=== PATIENT | male | born 1970 | race Caucasian/White ===

== ENCOUNTER 2019-11-03 15:56 | Emergency (ER) | payer BC, OTHER ==
[2019-11-03 16:42] LABS: Absolute Neutrophil Ct (ANC) 4.11 (1.4-6.9); BASOPHIL % 0.1 % (0.0-0.4); Basophil (Absolute #) 0.01 (0-0.4); Eosinophil % 2.3 % (0.00-5.0); Eosinophil (Absolute #) 0.16 (0-0.5); Hematocrit 45.8 % (42-50); Hemoglobin 15.8 gm/dl (12.5-18.0); Lymphocyte (Absolute #) 2.13 (1.0-4.6); Lymphocytes % 30.3 % (24.0-44.0); Mean Cell Volume 100.4 fl (78-100); Mean Corpuscular Hemoglobin 34.6 pg (26-32); Mean Corpuscular Hgb Concent. 34.5 g/dl (32-36); Mean Platelet Volume 9.4 fl (7.5-11.0); Monocyte (Absolute #) 0.61 (0.0-1.3); Monocytes % 8.7 % (0.0-12.0); Neutrophil % 58.6 % (36.0-66.0); Platelet Count 180 K/mm3 (150-450); Red Blood Count 4.56 M/mm3 (4.1-5.6); Red Cell Distribution Width 12.8 % (11.5-14.0)
[2019-11-03 17:42] VITALS: PULSE 84; O2SAT 97
[2019-11-03] MEDS ORDERED: BABY ASPIRIN 81 MG CHEW PO ONE (18:11)
[2019-11-03] MEDS ORDERED: BABY ASPIRIN 81 MG CHEW ONE (18:31)
[2019-11-03 18:33] VITALS: BP 129/72
[2019-11-03 18:45] LABS: Amphetamine,Urine NEGATIVE (NEGATIVE); Appearance CLEAR (CLEAR); Bacteria NONE SEEN /HPF (NEGATIVE); Barbiturate,Urine NEGATIVE (NEGATIVE); Benzodiazepine,Urine NEGATIVE (NEGATIVE); Bilirubin NEGATIVE (NEGATIVE); Blood SMALL Ery/ul (0-5); Cocaine,Urine NEGATIVE (NEGATIVE); Glucose NEGATIVE (NEGATIVE); Ketones NEGATIVE (NEGATIVE); Leukocyte Esterase SMALL (NEGATIVE); Methadone,Urine NEGATIVE (NEGATIVE); Mucus SLIGHT /HPF (NEGATIVE); Nitrite NEGATIVE (NEGATIVE); Opiate,Urine NEGATIVE (NEGATIVE); PCP,Urine NEGATIVE (NEGATIVE); Protein,Urine Dip NEGATIVE (Negative); THC,Urine POSITIVE (NEGATIVE); Urobilinogen 2 mg/dL (0-1); WBC 0-2 /HPF (0-5)
[2019-11-03 18:56] LABS: ALBUMIN 4.7 g/dL (3.5-5.0); ALKALINE PHOSPHATASE 58 U/L (38-126); ANION GAP 14.8 MEQ/L (5-15); BLOOD UREA NITROGEN 11 mg/dL (9-20); CHLORIDE 106 mmol/L (98-107); Calcium 9.6 mg/dL (8.4-10.2); Carbon Dioxide 24 mmol/L (22-30); Creatinine 1 0.91 mg/dL (0.66-1.25); EST GLOMERULAR FILTRATION RATE > 60.0 ML/MIN; Glucose 104 mg/dL (74-106); Potassium 4.1 mmol/L (3.5-5.1); SGOT/AST 29 U/L (17-59); SGPT/ALT 24 U/L (0-50); SODIUM 141 mmol/L (137-145); Total Protein 8.1 g/dL (6.3-8.2)
--- NOTE | 2019-11-03 18:59 | ERPHSYRPT ---
- History of Present Illness Time Seen by Provider: 11/03/19 16:13 Source: patient Exam Limitations: no limitations Patient Subjective Stated Complaint: Pt states that when he woke up this morning his left arm was numb, pt reports drinking last night Triage Nursing Assessment: Pt brought himself to the ER, hypertensive, unable to use left hand, denies pain, no edema, no other parts of the body is effected, denies any other issues at this time Physician History: 49 years old male presented in the ER with chief complaint of left upper extremity weakness and numbness since he woke up around 9 AM. Patient reports was drinking last night and went to bed in his friend's place normally, woke up and was unable to move his left wrist. He denies any weakness in the lower extremities, difficulty speech or visual disturbance. Planes of numbness in the entire left upper extremity and some on the left face. Denies any chest pain palpitations or shortness of breath. No sick contact. Time of Onset/Last Time Seen Normal: woke up with left arm numbness and inability to extend left wrist Timing/Duration: today, sudden Severity: moderate Character of Deficits: new weakness, altered sensation, LUE Deficits: no difficulties Baseline/Normal Cognition: alert oriented x 3 Current Cognition: alert oriented x 3 Baseline Gait: walks w/o assistance Associated Symptoms: weakness, paresthesia Allergies/Adverse Reactions: Sulfa (Sulfonamide Antibiotics) Allergy (Verified 11/03/19 16:18) Home Medications: No Reportable Medications [No Reported Medications] 11/03/19 [History] Travel Risk - International Travel Have you traveled outside of the country in past 3 weeks: No - Coronavirus Screening Are you exhibiting any of the following symptoms?: No Close contact with a COVID-19 positive Pt in past 14-21 Days: No - Review of Systems Constitutional: No Symptoms Eyes: No Symptoms Ears, Nose, & Throat: No Symptoms Respiratory: No Symptoms Cardiac: No Symptoms Abdominal/Gastrointestinal: No Symptoms Genitourinary Symptoms: No Symptoms Musculoskeletal: No Symptoms Skin: No Symptoms Neurological: Focal Weakness, Parasthesia, Sensory Changes Psychological: No Symptoms Endocrine: No Symptoms Hematologic/Lymphatic: No Symptoms Immunological/Allergic: No Symptoms - Past Medical History Pertinent Past Medical History: No GI Medical History: Hernia - Past Surgical History Past Surgical History: Yes Gastrointestinal: Hernia Repair - Social History Smoking Status: Current every day smoker Exposure to second hand smoke: Yes Drug Use: marijuana Patient Lives Alone: Yes - Nursing Vital Signs Nursing Vital Signs: Initial Vital Signs Pulse Rate 79 11/03/19 16:04 Blood Pressure 145/89 11/03/19 16:04 O2 Sat by Pulse Oximetry 98 11/03/19 16:04 Pain Scale Pain Intensity 0 - Tashi Coma Scale Best Eye Response (Hooks): (4) open spontaneously Best Verbal Response (Hooks): (5) oriented Best Motor Response (Tashi): (6) obeys commands Tashi Total: 15 - Physical Exam General Appearance: no apparent distress, alert Eye Exam: bilateral eye: normal inspection, PERRL, EOMI Ears, Nose, Throat Exam: normal ENT inspection, TMs normal, pharynx normal Neck Exam: normal inspection, non-tender, supple, full range of motion Respiratory: normal breath sounds, lungs clear Cardiovascular: regular rate/rhythm, normal heart sounds Gastrointestinal: soft, normal bowel sounds, No tenderness Back Exam: normal inspection, normal range of motion Extremity Exam: normal inspection, normal range of motion, parasthesia Mental Status: alert, oriented x 3, 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 Exam: normal hearing, normal speech, PERRL Coordination/Gait: normal gait Motor/Sensory: no motor deficit (Left wrist extension more than flexion.), negative Babinski's sign, weak motor strength LUE Skin Exam: normal color SpO2 Interpretation: normal SpO2: 97 O2 Delivery: Room Air - Course Nursing assessment & vital signs reviewed: Yes EKG Interpreted by Me: RATE (75), Sinus Rhythm, NORMAL AXIS, NORMAL INTERVALS, NORMAL QRS Ordered Tests: Active Orders 24 hr Category Date Time Status AMA [Release AMA] OM.NOW Care 11/03/19 19:00 Completed EKG-ER Only STAT Care 11/03/19 16:16 Completed IV Insertion STAT Care 11/03/19 16:16 Completed NPO (ED) STAT Care 11/03/19 16:17 Completed CHEST 1 VIEW (PORTABLE) Stat Exams 11/03/19 16:17 Completed HEAD WITHOUT CONTRAST [CT] Stat Exams 11/03/19 16:18 Completed CBC W DIFF Stat Lab 11/03/19 16:25 Completed CMP Stat Lab 11/03/19 17:50 Completed ETHYL ALCOHOL Stat Lab 11/03/19 16:25 Completed PTT Stat Lab 11/03/19 16:25 Completed TROPONIN Q3H Lab 11/03/19 16:25 Completed UA W/RFX UR CULTURE Stat Lab 11/03/19 17:50 Completed Urine Triage Profile Stat Lab 11/03/19 17:50 Completed Medication Summary Discontinued Medications Generic Name Dose Route Start Last Admin Trade Name Bunny PRN Reason Stop Dose Admin Aspirin 324 mg 11/03/19 18:11 11/03/19 18:32 Baby Aspirin 81 Mg Chew PO 11/03/19 18:12 324 mg STAT ONE Administration Aspirin Confirm 11/03/19 18:31 Baby Aspirin 81 Mg Chew Administered 11/03/19 18:32 Dose 324 mg .ROUTE .STK-MED ONE Lab/Rad Data: Laboratory Result Diagrams 11/03/19 16:25 11/03/19 17:50 Laboratory Results 11/03/19 11/03/19 11/03/19 Range/Units 17:50 17:50 17:50 WBC (4.0-10.5) K/mm3 RBC (4.1-5.6) M/mm3 Hgb (12.5-18.0) gm/dl Hct (42-50) % MCV (78-100) fl MCH (26-32) pg MCHC (32-36) g/dl RDW (11.5-14.0) % Plt Count (150-450) K/mm3 MPV (7.5-11.0) fl Gran % (36.0-66.0) % Eos # (Auto) (0-0.5) Absolute Lymphs (auto) (1.0-4.6) Absolute Monos (auto) (0.0-1.3) Lymphocytes % (24.0-44.0) % Monocytes % (0.0-12.0) % Eosinophils % (0.00-5.0) % Basophils % (0.0-0.4) % Absolute Granulocytes (1.4-6.9) Basophils # (0-0.4) APTT (24.1-36.1) SECONDS Sodium 141 (137-145) mmol/L Potassium 4.1 (3.5-5.1) mmol/L Chloride 106 (98-107) mmol/L Carbon Dioxide 24 (22-30) mmol/L Anion Gap 14.8 (5-15) MEQ/L BUN 11 (9-20) mg/dL Creatinine 0.91 (0.66-1.25) mg/dL Estimated GFR > 60.0 ML/MIN Glucose 104 (74-106) mg/dL Calcium 9.6 (8.4-10.2) mg/dL Total Bilirubin 0.40 (0.2-1.3) mg/dL AST 29 (17-59) U/L ALT 24 (0-50) U/L Alkaline Phosphatase 58 (38-126) U/L Troponin I (0.000-0.034) ng/mL Serum Total Protein 8.1 (6.3-8.2) g/dL Albumin 4.7 (3.5-5.0) g/dL Urine Color YELLOW (YELLOW) Urine Appearance CLEAR (CLEAR) Urine pH 6.0 (5-6) Ur Specific [place] 1.020 (1.005-1.025) Urine Protein NEGATIVE (Negative) Urine Ketones NEGATIVE (NEGATIVE) Urine Blood SMALL (0-5) [place]/ul Urine Nitrite NEGATIVE (NEGATIVE) Urine Bilirubin NEGATIVE (NEGATIVE) Urine Urobilinogen 2 (0-1) mg/dL Ur Leukocyte Esterase SMALL (NEGATIVE) Urine WBC (Auto) 0-2 (0-5) /HPF Urine RBC (Auto) 3-5 (0-2) /HPF U Epithel Cells (Auto) NONE (FEW) /HPF Urine Bacteria (Auto) NONE SEEN (NEGATIVE) /HPF Urine Mucus (Auto) SLIGHT (NEGATIVE) /HPF Urine Culture Reflexed NO (NO) Urine Glucose NEGATIVE (NEGATIVE) mg/dL Urine Opiates Level NEGATIVE (NEGATIVE) Ur Methadone NEGATIVE (NEGATIVE) Urine Barbiturates NEGATIVE (NEGATIVE) Ur Phencyclidine (PCP) NEGATIVE (NEGATIVE) Urine Amphetamine NEGATIVE (NEGATIVE) U Benzodiazepine Level NEGATIVE (NEGATIVE) Urine Cocaine NEGATIVE (NEGATIVE) Urine Marijuana (THC) POSITIVE (NEGATIVE) Ethyl Alcohol (0-10) mg/dL 11/03/19 11/03/19 11/03/19 Range/Units 16:25 16:25 16:25 WBC (4.0-10.5) K/mm3 RBC (4.1-5.6) M/mm3 Hgb (12.5-18.0) gm/dl Hct (42-50) % MCV (78-100) fl MCH (26-32) pg MCHC (32-36) g/dl RDW (11.5-14.0) % Plt Count (150-450) K/mm3 MPV (7.5-11.0) fl Gran % (36.0-66.0) % Eos # (Auto) (0-0.5) Absolute Lymphs (auto) (1.0-4.6) Absolute Monos (auto) (0.0-1.3) Lymphocytes % (24.0-44.0) % Monocytes % (0.0-12.0) % Eosinophils % (0.00-5.0) % Basophils % (0.0-0.4) % Absolute Granulocytes (1.4-6.9) Basophils # (0-0.4) APTT 32.1 (24.1-36.1) SECONDS Sodium (137-145) mmol/L Potassium (3.5-5.1) mmol/L Chloride (98-107) mmol/L Carbon Dioxide (22-30) mmol/L Anion Gap (5-15) MEQ/L BUN (9-20) mg/dL Creatinine (0.66-1.25) mg/dL Estimated GFR ML/MIN Glucose (74-106) mg/dL Calcium (8.4-10.2) mg/dL Total Bilirubin (0.2-1.3) mg/dL AST (17-59) U/L ALT (0-50) U/L Alkaline Phosphatase (38-126) U/L Troponin I < 0.012 (0.000-0.034) ng/mL Serum Total Protein (6.3-8.2) g/dL Albumin (3.5-5.0) g/dL Urine Color (YELLOW) Urine Appearance (CLEAR) Urine pH (5-6) Ur Specific [place] (1.005-1.025) Urine Protein (Negative) Urine Ketones (NEGATIVE) Urine Blood (0-5) Wal[place]/ul Urine Nitrite (NEGATIVE) Urine Bilirubin (NEGATIVE) Urine Urobilinogen (0-1) mg/dL Ur Leukocyte Esterase (NEGATIVE) Urine WBC (Auto) (0-5) /HPF Urine RBC (Auto) (0-2) /HPF U Epithel Cells (Auto) (FEW) /HPF Urine Bacteria (Auto) (NEGATIVE) /HPF Urine Mucus (Auto) (NEGATIVE) /HPF Urine Culture Reflexed (NO) Urine Glucose (NEGATIVE) mg/dL Urine Opiates Level (NEGATIVE) Ur Methadone (NEGATIVE) Urine Barbiturates (NEGATIVE) Ur Phencyclidine (PCP) (NEGATIVE) Urine Amphetamine (NEGATIVE) U Benzodiazepine Level (NEGATIVE) Urine Cocaine (NEGATIVE) Urine Marijuana (THC) (NEGATIVE) Ethyl Alcohol 24 H (0-10) mg/dL 11/03/19 Range/Units 16:25 WBC 7.0 (4.0-10.5) K/mm3 RBC 4.56 (4.1-5.6) M/mm3 Hgb 15.8 (12.5-18.0) gm/dl Hct 45.8 (42-50) % MCV 100.4 H (78-100) fl MCH 34.6 H (26-32) pg MCHC 34.5 (32-36) g/dl RDW 12.8 (11.5-14.0) % Plt Count 180 (150-450) K/mm3 MPV 9.4 (7.5-11.0) fl Gran % 58.6 (36.0-66.0) % Eos # (Auto) 0.16 (0-0.5) Absolute Lymphs (auto) 2.13 (1.0-4.6) Absolute Monos (auto) 0.61 (0.0-1.3) Lymphocytes % 30.3 (24.0-44.0) % Monocytes % 8.7 (0.0-12.0) % Eosinophils % 2.3 (0.00-5.0) % Basophils % 0.1 (0.0-0.4) % Absolute Granulocytes 4.11 (1.4-6.9) Basophils # 0.01 (0-0.4) APTT (24.1-36.1) SECONDS Sodium (137-145) mmol/L Potassium (3.5-5.1) mmol/L Chloride (98-107) mmol/L Carbon Dioxide (22-30) mmol/L Anion Gap (5-15) MEQ/L BUN (9-20) mg/dL Creatinine (0.66-1.25) mg/dL Estimated GFR ML/MIN Glucose (74-106) mg/dL Calcium (8.4-10.2) mg/dL Total Bilirubin (0.2-1.3) mg/dL AST (17-59) U/L ALT (0-50) U/L Alkaline Phosphatase (38-126) U/L Troponin I (0.000-0.034) ng/mL Serum Total Protein (6.3-8.2) g/dL Albumin (3.5-5.0) g/dL Urine Color (YELLOW) Urine Appearance (CLEAR) Urine pH (5-6) Ur Specific [place] (1.005-1.025) Urine Protein (Negative) Urine Ketones (NEGATIVE) Urine Blood (0-5) [place]/ul Urine Nitrite (NEGATIVE) Urine Bilirubin (NEGATIVE) Urine Urobilinogen (0-1) mg/dL Ur Leukocyte Esterase (NEGATIVE) Urine WBC (Auto) (0-5) /HPF Urine RBC (Auto) (0-2) /HPF U Epithel Cells (Auto) (FEW) /HPF Urine Bacteria (Auto) (NEGATIVE) /HPF Urine Mucus (Auto) (NEGATIVE) /HPF Urine Culture Reflexed (NO) Urine Glucose (NEGATIVE) mg/dL Urine Opiates Level (NEGATIVE) Ur Methadone (NEGATIVE) Urine Barbiturates (NEGATIVE) Ur Phencyclidine (PCP) (NEGATIVE) Urine Amphetamine (NEGATIVE) U Benzodiazepine Level (NEGATIVE) Urine Cocaine (NEGATIVE) Urine Marijuana (THC) (NEGATIVE) Ethyl Alcohol (0-10) mg/dL - Progress Progress: unchanged Progress Note: Old is evaluated for left upper extremity weakness with wrist drop which seems more of a 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 I have obtained CT head which is negative. Other stroke work-up is negative. Obtained specialist on called neuro consult, recommended MRI to rule out ischemic event as patient has numbness in upper extremity and also numbness left face which does not fit with only radial nerve palsy. Since [facility] and no MRI services available over the weekend, he is given aspirin and recommended transfer to facility with MRI services over the weekend. Patient does not want to go. Discussed in detail about the risk of delaying diagnosis, worsening disability and full-blown stroke/another stroke leading to permanent disability including but he still wants to go. Patient called his girlfriend will try to convince him but he still wants to go. Patient stated I am all right and do not think anything is going to happen to me". Patient signed AMA. He is given referral for outpatient neurology and recommended primary care visit. He is placed in a left wrist splint. Discussed with : Other Counseled pt/family regarding: lab results, diagnosis, rad results - Departure Departure Disposition: AMA Clinical Impression: Weakness of left upper extremity, Numbness Condition: Stable Critical Care Time: Yes Critical Care Time(excluding separately billable procedures): Critical 30-74 mins Referrals: EVENS BUSTILLOS [Primary Care Provider] - Follow Up with PCP/3 days RONAK HO [NON-STAFF PHY W/O PRIVILEGES] - (call in 2 days for re evaluation) Instructions: Stroke, Paresthesias (DC) Additional Instructions: Follow-up with primary care and neurology for reevaluation. Return to ER for worsening.
--- NOTE | 2019-11-03 21:05 | XRAY ---
Indication: Left arm weakness. Comparison: May 07, 2018. Portable chest again demonstrates normal heart and lungs. Bony thorax intact. No new/acute findings.
--- NOTE | 2019-11-03 21:07 | XRAY ---
Indication: Left arm weakness. Multiple contiguous axial images obtained through the head without contrast. Comparison: None Normal appearing brain parenchyma, ventricles, and bony calvarium. Moderate mucosal thickening of both ethmoid and lesser degree both maxillary sinuses. Mastoid air cells are clear. Impression: Paranasal sinus disease. Remaining CT head without contrast exam is negative. Comment: Preliminary interpretation was made by [facility]. No critical discrepancy.
== END 2019-11-03 19:00 | disposition left against medical advice (07) ==
LOC: ED 15:56
DX: R53.1 Weakness (principal); R20.0 Anesthesia of skin
CPT/HCPCS: 36000; 36415; 70450; 71045; 80053; 80307; 81001; 84484; 85025; 85730; 93005; 99284; 99291; L3908; A9270-GY; G0480

== ENCOUNTER 2020-08-31 16:56 | Emergency (ER) | payer BC ==
[2020-08-31 18:02] VITALS: BP 96/75; PULSE 78; O2SAT 97
[2020-08-31] MEDS ORDERED: OXYCODONE-ACETAMINOPHEN 10-325 ONE ×2 (18:02→18:09)
[2020-08-31] MEDS ORDERED: OXYCODONE-ACETAMINOPHEN 10-325 PO STA (18:04)
[2020-08-31] MEDS ORDERED: PERCOCET TABLET 5/325MG PO STA (18:30)
--- NOTE | 2020-08-31 18:30 | ERPHSYRPT ---
- History of Present Illness Time Seen by Provider: 08/31/20 17:01 Source: patient Exam Limitations: no limitations Patient Subjective Stated Complaint: Pt hit the top of his left hand with a 3 pound beater hammer Triage Nursing Assessment: Pt brought to the ER by his girlfriend, hypotensive, rates pain 7/10, left hand swollen and large hematoma, able to move fingers, pulses normal, cap refill normal, denies any other injuries Physician History: 50 years old male right-handed dominant presented in the ER with chief complaint of left hand pain and swelling after he accidentally hit while working with a hammer prior to arrival. He is complaining of moderate to severe sharp pain in the dorsum of hand with significant swelling and difficulty movements of fingers especially the third digit. Pain is aggravated with movements of the finger. Denies any tingling and numbness in the fingers. No skin break. Occurred: just prior to arrival Method of Injury: direct blow Quality: sharpness Severity of Pain-Max: severe Severity of Pain-Current: severe Extremities Pain Location: hand: left Modifying Factors: Improves With: cold therapy, immobilization. Worsens With: movement Associated Symptoms: none Allergies/Adverse Reactions: Sulfa (Sulfonamide Antibiotics) Allergy (Verified 08/31/20 18:02) Travel Risk - International Travel Have you traveled outside of the country in past 3 weeks: No - Coronavirus Screening Are you exhibiting any of the following symptoms?: No Close contact with a COVID-19 positive Pt in past 14-21 Days: No - Vaccine Status Have you recieved a Covid-19 vaccination: No - Review of Systems Constitutional: No Symptoms Eyes: No Symptoms Respiratory: No Symptoms Abdominal/Gastrointestinal: No Symptoms Musculoskeletal: Injury, Joint Redness, Joint Pain Neurological: No Symptoms Psychological: No Symptoms Endocrine: No Symptoms Hematologic/Lymphatic: No Symptoms Immunological/Allergic: No Symptoms - Past Medical History Pertinent Past Medical History: Yes Neurological History: No Pertinent History Cardiac History: No Pertinent History Respiratory History: Other Endocrine Medical History: No Pertinent History Musculoskeletal History: No Pertinent History GI Medical History: Hernia Other Medical History: Smoker of ~30 years - Past Surgical History Past Surgical History: Yes Gastrointestinal: Hernia Repair - Social History Smoking Status: Current every day smoker Exposure to second hand smoke: Yes Drug Use: marijuana Patient Lives Alone: Yes - Nursing Vital Signs Nursing Vital Signs: Initial Vital Signs Temperature 98.3 F 08/31/20 17:52 Pulse Rate 78 08/31/20 17:52 Blood Pressure 96/75 08/31/20 17:52 O2 Sat by Pulse Oximetry 97 08/31/20 17:52 Pain Scale Pain Intensity 7 - Physical Exam General Appearance: no apparent distress, alert Neck Exam: normal inspection, supple, full range of motion Cardiovascular/Respiratory Exam: normal breath sounds, regular rate/rhythm Back Exam: normal inspection, normal range of motion Shoulder Exam: normal inspection Elbow/Forearm Exam: normal inspection, non-tender, no evidence of injury, normal ROM Wrist Exam: normal inspection, non-tender, no evidence of injury, normal ROM Hand Exam: bone tenderness, limited ROM, swelling (Marked swelling dorsum of hand especially on the lateral aspect second third and fourth digit metacarpophalangeal joint area. Marked limitation of movements of third metacarpophalangeal joint. Intact distal neurovascular.) Neuro/Tendon Exam: normal sensation, normal motor functions Mental Status Exam: alert, oriented x 3, cooperative Skin Exam: normal color SpO2 Interpretation: normal SpO2: 97 O2 Delivery: Room Air Ordered Tests: Active Orders 24 hr Category Date Time Status HAND (MINIMUM 3 VIEWS) Stat Exams 08/31/20 Ordered Medication Summary Discontinued Medications Generic Name Dose Route Start Last Admin Trade Name Bunny PRN Reason Stop Dose Admin Oxycodone/Acetaminophen 1 tab 08/31/20 18:04 08/31/20 18:10 Oxycodone-Acetaminophen 10-325 PO 08/31/20 18:05 1 tab STAT STA Administration Oxycodone/Acetaminophen Confirm 08/31/20 18:02 Oxycodone-Acetaminophen 10-325 Administered 08/31/20 18:03 Dose 1 tab .ROUTE .STK-MED ONE Oxycodone/Acetaminophen Confirm 08/31/20 18:09 Oxycodone-Acetaminophen 10-325 Administered 08/31/20 18:10 Dose 1 tab .ROUTE .STK-MED ONE Oxycodone/Acetaminophen 2 tab 08/31/20 18:30 Percocet Tablet 5/325mg PO 08/31/20 18:31 SENT HOME W/ PATIENT STA - Progress Progress: improved, pain not gone completely, re-examined Progress Note: 08/31/20 18:25 He is given Percocet for symptomatic relief and apply ice. Has limited range of motion at the third metacarpophalangeal joint of left hand with intact sensation of the pulp and cap refill less than 3 seconds. X-rays showed mildly displaced fracture third metacarpal. Placed in a splint, ice and [place] to go home. Recommended outpatient hand surgery follow-up. Counseled pt/family regarding: diagnosis, need for follow-up, rad results - Departure Departure Disposition: Home Clinical Impression: Fracture of third metacarpal bone of left hand Qualifiers: Encounter type: initial encounter Fracture type: closed Metacarpal location: unspecified portion of metacarpal Fracture alignment: displaced Qualified C ode(s): S62.303A - Unspecified fracture of third metacarpal bone, left hand, initial encounter for closed fracture Condition: Stable Critical Care Time: No Referrals: EVENS BUSTILLOS [Primary Care Provider] - Follow Up with PCP/3 days FAISAL OLONEY MD [NON-STAFF PHY W/O PRIVILEGES] - (Call tomorrow for appointment and reevaluation) Instructions: Hand Fracture (DC) Additional Instructions: Take ibuprofen and [place] for pain as needed. Keep it elevated. Apply intermittent ice. Follow-up with hand surgery for reevaluation. Return to ER for bluish discoloration of fingers, swelling of finger, inability to move fingers etc. Prescriptions: Hydrocodone/Acetaminophen [Hydrocodone-Acetamin 7.5-325] 1 each PO Q6HPRN PRN 3 Days #12 tablet MDD 4 PRN Reason: Pain
[2020-08-31] MEDS ORDERED: PERCOCET TABLET 5/325MG ONE (18:37)
--- NOTE | 2020-09-01 09:01 | XRAY ---
Indication: Pain and swelling following injury. Comparison: None 3 view left hand demonstrates minimally displaced cortical fracture distal shaft 3rd metacarpal with soft tissue swelling. No other bony, articular, or soft tissue abnormalities. Comment: No recorded preliminary interpretation by the ER clinician. Telephone report given to Dr. Tidwell in the ER at 0855 hours on September 01, 2020.
== END 2020-08-31 19:00 | disposition home or self-care (01) ==
LOC: ED 16:56
DX: S62.303A Unspecified fracture of third metacarpal bone, left hand, initial encounter for closed fracture (principal); W22.8XXA Striking against or struck by other objects, initial encounter; Y93.89 Activity, other specified; Y92.89 Other specified places as the place of occurrence of the external cause; Y99.9 Unspecified external cause status; M79.642 Pain in left hand
CPT/HCPCS: 73130; 99283; A4570; A9270-GY

== ENCOUNTER 2020-11-21 09:29 | Emergency (ER) | payer BC ==
[2020-11-21] MEDS ORDERED: EMLA Cream 5 GM TP ONE ×2 (10:18→10:27)
[2020-11-21] MEDS ORDERED: NORCO 5/325 MG ONE (10:19)
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
[2020-11-21] MEDS ORDERED: Adacel Vial IM ONE ×2 (10:27→10:30)
[2020-11-21] MEDS ORDERED: NORCO 5/325 MG PO ONE (10:28)
[2020-11-21] MEDS ORDERED: Sodium Chloride 0.9% 500 ML 500 ML IV ONE ×2 (10:47→11:19)
[2020-11-21] MEDS ORDERED: Zofran 4 MG/2 ML VIAL IV ONE (10:48)
[2020-11-21] MEDS ORDERED: MORPHINE SULFATE 4 MG INJ IV ONE (10:48)
[2020-11-21 11:11] LABS: ALBUMIN 4.8 g/dL (3.5-5.0); ALKALINE PHOSPHATASE 73 U/L (38-126); ANION GAP 16.1 MEQ/L (5-15); BLOOD UREA NITROGEN 9 mg/dL (9-20); CHLORIDE 104 mmol/L (98-107); Calcium 9.6 mg/dL (8.4-10.2); Carbon Dioxide 25 mmol/L (22-30); EST GLOMERULAR FILTRATION RATE > 60.0 ML/MIN; Glucose 93 mg/dL (74-106); SGOT/AST 48 U/L (17-59); SGPT/ALT 38 U/L (0-50); SODIUM 141 mmol/L (137-145); Total Protein 7.8 g/dL (6.3-8.2)
[2020-11-21] MEDS ORDERED: MORPHINE SULFATE 4 MG INJ ONE (11:19)
[2020-11-21] MEDS ORDERED: Zofran 4 MG/2 ML VIAL ONE (11:19)
[2020-11-21 11:25] LABS: Absolute Neutrophil Ct (ANC) 7.35 (1.4-6.9); BASOPHIL % 0.1 % (0.0-0.4); Basophil (Absolute #) 0.01 (0-0.4); Eosinophil % 0.7 % (0.00-5.0); Eosinophil (Absolute #) 0.06 (0-0.5); Hematocrit 45.8 % (42-50); Hemoglobin 15.2 gm/dl (12.5-18.0); Lymphocyte (Absolute #) 1.07 (1.0-4.6); Lymphocytes % 11.7 % (24.0-44.0); Mean Cell Volume 103.4 fl (78-100); Mean Corpuscular Hemoglobin 34.3 pg (26-32); Mean Corpuscular Hgb Concent. 33.2 g/dl (32-36); Monocyte (Absolute #) 0.69 (0.0-1.3); Monocytes % 7.5 % (0.0-12.0); Platelet Count 184 K/mm3 (150-450); Red Blood Count 4.43 M/mm3 (4.1-5.6); Red Cell Distribution Width 13.3 % (11.5-14.0); White Blood Count 9.2 K/mm3 (4.0-10.5)
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
[2020-11-21] MEDS ORDERED: BACIGUENT PACKET ONE (12:56)
[2020-11-21] MEDS ORDERED: MORPHINE SULFATE 2 MG INJ ONE (14:12)
[2020-11-21] MEDS ORDERED: MORPHINE SULFATE 2 MG INJ IV ONE (14:13)
[2020-11-21 14:17] VITALS: BP 130/61; PULSE 77; O2SAT 96
== END 2020-11-21 14:26 | disposition left against medical advice (07) ==
LOC: ED 09:29
DX: S22.49XA Multiple fractures of ribs, unspecified side, initial encounter for closed fracture (principal); J93.9 Pneumothorax, unspecified; S01.81XA Laceration without foreign body of other part of head, initial encounter; S01.01XA Laceration without foreign body of scalp, initial encounter; V89.0XXA Person injured in unspecified motor-vehicle accident, nontraffic, initial encounter; Y93.9 Activity, unspecified; Y92.89 Other specified places as the place of occurrence of the external cause; S51.012A Laceration without foreign body of left elbow, initial encounter; R07.9 Chest pain, unspecified; S27.322A Contusion of lung, bilateral, initial encounter
CPT/HCPCS: 36415; 70150; 71260; 80053; 84484; 85025; 85379; 90471; 90715; 93005; 96374; 96375; 99285; J2270; J2405; A9270-GY

== ENCOUNTER 2022-07-12 23:25 | Emergency (ER) | payer BC ==
[2022-07-12] MEDS ORDERED: Sodium Chloride 0.9% 1000 ML 1,000 ML IV STA (23:43)
--- NOTE | 2022-07-12 23:43 | ERPHSYRPT ---
- History of Present Illness Time Seen by Provider: 07/12/22 23:43 Historian: patient Exam Limitations: no limitations Physician History: 52-year-old male presents the emergency room via ambulance for left lower abdominal pain since 830 this evening. Patient reports taking half of Vicodin with no relief. He has a history of hernia, but feels no bulge. Patient describes the pain is a sharp, throbbing pain that starts at his left flank and radiates to his left groin and testicle. He denies fever, chills, nausea or vomiting. Patient was on nasal cannula upon arrival to the room and he states that he is not usually on oxygen and takes no inhalers at home. He is a daily smoker. No history of blood clots or recent surgeries. No unilateral leg swelling reported. Patient denies chest pain as well. Timing/Duration: today Activities at Onset: rest Quality: sharpness, throbbing Abdominal Pain Onset Location: LLQ, flank (left) Pain Radiation: groin, other (testicle) Severity of Pain-Max: severe Severity of Pain-Current: severe Modifying Factors: Improves With: nothing. Worsens With: movement, palpation Associated Symptoms: shortness of breath, testicular pain, No chest pain, No diaphoresis, No fever/chills, No nausea, No vomiting Previous symptoms: no prior history Allergies/Adverse Reactions: Sulfa (Sulfonamide Antibiotics) Allergy (Verified 11/21/20 09:58) Hx Tetanus, Diphtheria Vaccination/Date Given: No Hx Influenza Vaccination/Date Given: No Hx Pneumococcal Vaccination/Date Given: No Travel Risk - Vaccine Status Have you recieved a Covid-19 vaccination: No - Review of Systems Constitutional: No Symptoms Eyes: No Symptoms Ears, Nose, & Throat: No Symptoms Respiratory: Cough, Dyspnea, Dyspnea on Exertion (RODNEY), Wheezing Cardiac: No Symptoms Abdominal/Gastrointestinal: Abdominal Pain, No Nausea, No Vomiting, No Diarrhea, No Constipation, No Hematemesis, No Hematochezia Genitourinary Symptoms: Flank Pain, Testicle Pain, No Dysuria, No Hematuria, No Penile Discharge Musculoskeletal: No Symptoms Skin: No Symptoms Neurological: No Symptoms - Past Medical History Pertinent Past Medical History: Yes Neurological History: Other Cardiac History: No Pertinent History Respiratory History: No Pertinent History Endocrine Medical History: No Pertinent History Musculoskeletal History: No Pertinent History GI Medical History: Hernia Other Medical History: LUE Radial Nerve Palsy - Past Surgical History Past Surgical History: Yes Gastrointestinal: Hernia Repair Musculoskeletal: Orthopedic Surgery Other Surgical History: L hand - Social History Smoking Status: Current every day smoker How long have you smoked: years Exposure to second hand smoke: Yes Drug Use: marijuana Patient Lives Alone: Yes - Nursing Vital Signs Nursing Vital Signs: Initial Vital Signs Temperature 97.8 F 07/12/22 23:30 Pulse Rate 63 07/12/22 23:30 Respiratory Rate 18 07/12/22 23:30 Blood Pressure 126/85 07/12/22 23:30 O2 Sat by Pulse Oximetry 100 07/12/22 23:30 Pain Scale Pain Intensity 3 - Physical Exam General Appearance: mild distress Eye Exam: eyes nml inspection Ears, Nose, Throat Exam: normal ENT inspection Neck Exam: normal inspection, supple, full range of motion Respiratory Exam: airway intact, diminished breath sounds, wheezing, No respiratory distress Cardiovascular Exam: regular rate/rhythm, normal heart sounds, capillary refill <2 sec, No edema Gastrointestinal/Abdomen Exam: soft, normal bowel sounds, tenderness (LLQ), guarding, No distention, No mass, No rebound, No hernia Male Genitalia Exam: normal genitalia, testicular tenderness, No hernia, No testicular mass, No penile lesion, No penile discharge Extremity Exam: normal inspection, normal range of motion, No swelling, No tenderness Neurologic Exam: alert, oriented x 3, cooperative Skin Exam: normal color, warm, dry SpO2 Interpretation: hypoxic, O2 applied SpO2: 100 O2 Delivery: Nasal Cannula (5) - Radiology Exams Chest X-ray Interpretation: Interpreted by me, No Pneumonia, No Pneumothorax, Other (hyperinflated) - CT Exams Abdomen/Pelvis CT Interpretation: Tele-radiologist Report, Other (L5-S1 broad based posterior disc bulge, no acute abdominal findings\) - Radiology Ultrasound Exam Scrotal Ultrasound: tele radiology report, No Torsion/Nml Flow, Other (fluid on right testicle, epidymal cysts on left testicle) Ordered Tests: Active Orders 24 hr Category Date Time Status IV Insertion STAT Care 07/12/22 23:43 Active ABDOMEN AND PELVIS W/0 CONTRAS [CT] Stat Exams 07/12/22 23:44 Completed CHEST 1 VIEW (PORTABLE) Routine Exams 07/13/22 00:13 Completed TESTICLE [US] Stat Exams 07/13/22 00:51 Taken CULTURE,URINE Stat Lab 07/13/22 00:47 Received Lactic Acid Stat Lab 07/12/22 23:43 Completed MAGNESIUM Stat Lab 07/13/22 00:40 Completed UA W/RFX UR CULTURE Stat Lab 07/13/22 00:47 Completed Respiratory Therapy Assessment DAILY RT 07/13/22 00:14 Active Medication Summary Discontinued Medications Generic Name Dose Route Start Last Admin Trade Name Bunny PRN Reason Stop Dose Admin Albuterol/Ipratropium 3 ml 07/12/22 23:48 07/13/22 00:15 Ipratropium/Albuterol Sulfate 3 Ml Ampul.Neb IH 07/12/22 23:49 3 ml STAT ONE Administration Albuterol/Ipratropium Confirm 07/13/22 00:13 Ipratropium/Albuterol Sulfate 3 Ml Ampul.Neb Administered 07/13/22 00:14 Dose 3 ml IH .STK-MED ONE Methylprednisolone Sodium 0 mg 07/12/22 23:48 07/13/22 00:18 Succinate 125 mg/ Sterile IV 07/12/22 23:49 Not Given Water 2 ml STAT ONE Droperidol 1.25 mg 07/12/22 23:43 07/13/22 00:04 Droperidol 5 Mg/2 Ml Vial IV 07/12/22 23:44 1.25 mg STAT ONE Administration Droperidol Confirm 07/12/22 23:52 Droperidol 5 Mg/2 Ml Vial Administered 07/12/22 23:53 Dose 5 mg .ROUTE .STK-MED ONE Sodium Chloride 1,000 mls @ 999 mls/hr 07/12/22 23:43 07/13/22 00:05 Sodium Chloride 0.9% 1000 Ml IV 07/13/22 00:43 999 mls/hr .Q1H1M STA Administration Sodium Chloride Confirm 07/12/22 23:53 Sodium Chloride 0.9% 1000 Ml Administered 07/12/22 23:54 Dose 1,000 mls @ ud .ROUTE .STK-MED ONE Levofloxacin 750 mg 07/13/22 01:47 Levofloxacin 500 Mg Tablet PO 07/13/22 01:48 ONCE ONE Methylprednisolone Sodium Succinate Confirm 07/12/22 23:53 Methylprednis Sod Succ 125 Mg/2 Ml Vial Administered 07/12/22 23:54 Dose 125 mg .ROUTE .STK-MED ONE Potassium Chloride 40 meq 07/13/22 00:41 07/13/22 00:45 Potassium Chloride Tab 10 Meq Tab PO 07/13/22 00:42 40 meq STAT ONE Administration Potassium Chloride Confirm 07/13/22 00:44 Potassium Chloride Tab 10 Meq Tab Administered 07/13/22 00:45 Dose 40 meq PO .STK-MED ONE Sterile Water Confirm 07/12/22 23:52 Water For Injection,Sterile 10 Ml Vial Administered 07/12/22 23:53 Dose 10 ml IJ .STK-MED ONE Lab/Rad Data: Laboratory Result Diagrams 07/12/22 00:10 07/12/22 00:10 Laboratory Results 07/13/22 07/13/22 07/13/22 Range/Units 00:47 00:40 00:19 WBC (4.0-10.5) x10^3/uL RBC (4.1-5.6) x10^6/uL Hgb (12.5-18.0) g/dL Hct (42-50) % MCV (78-100) fL MCH (26-32) pg MCHC (32-36) g/dL RDW (11.5-14.0) % Plt Count (150-450) x10^3/uL MPV (7.5-11.0) fL Gran % (36.0-66.0) % Immature Gran % (Auto) (0.00-0.4) % Nucleat RBC Rel Count (0.00-0.1) % Eos # (Auto) (0-0.5) x10^3/uL Immature Gran # (Auto) (0.00-0.03) x10^3u/L Absolute Lymphs (auto) (1.0-4.6) x10^3/uL Absolute Monos (auto) (0.0-1.3) x10^3/uL Absolute Nucleated RBC (0.00-0.01) x10^3u/L Lymphocytes % (24.0-44.0) % Monocytes % (0.0-12.0) % Eosinophils % (0.00-5.0) % Basophils % (0.0-0.4) % Absolute Granulocytes (1.4-6.9) x10^3/uL Basophils # (0-0.4) x10^3/uL Sodium (137-145) mmol/L Potassium (3.5-5.1) mmol/L Chloride (98-107) mmol/L Carbon Dioxide (22-30) mmol/L Anion Gap (5-15) MEQ/L BUN (9-20) mg/dL Creatinine (0.66-1.25) mg/dL Estimated GFR ML/MIN Glucose (74-106) mg/dL Lactic Acid 1.5 (0.4-2.0) Calcium (8.4-10.2) mg/dL Magnesium 1.9 (1.6-2.3) mg/dL Total Bilirubin (0.2-1.3) mg/dL AST (17-59) U/L ALT (0-50) U/L Alkaline Phosphatase (38-126) U/L Serum Total Protein (6.3-8.2) g/dL Albumin (3.5-5.0) g/dL Urine Color Yellow (Yellow) Urine Appearance Clear (Clear) Urine pH 8.0 (4.6-8.0) Ur Specific [place] 1.025 (1.005-1.030) Urine Protein 30 (Negative) Urine Glucose (UA) Negative (Negative) mg/dL Urine Ketones 40 A (Negative) Urine Blood Negative (Negative) Urine Nitrite Negative (Negative) Urine Bilirubin Negative (Negative) Urine Urobilinogen 1.0 A (0.2) mg/dL Ur Leukocyte Esterase Small A (Negative) U Hyaline Cast (Auto) 3-5 A (0-2) /LPF Urine Microscopic RBC 3-5 (0-5) /HPF Urine Microscopic WBC 11-20 A (0-5) /HPF Ur Epithelial Cells Rare (None Seen) /HPF Urine Bacteria None Seen (None Seen) /HPF Urine Culture Reflexed YES (NO) 07/12/22 07/12/22 Range/Units 00:10 00:10 WBC 9.5 (4.0-10.5) x10^3/uL RBC 4.31 (4.1-5.6) x10^6/uL Hgb 14.4 (12.5-18.0) g/dL Hct 43.0 (42-50) % MCV 99.8 (78-100) fL MCH 33.4 H (26-32) pg MCHC 33.5 (32-36) g/dL RDW 12.2 (11.5-14.0) % Plt Count 168 (150-450) x10^3/uL MPV 8.9 (7.5-11.0) fL Gran % 79.6 H (36.0-66.0) % Immature Gran % (Auto) 0.2 (0.00-0.4) % Nucleat RBC Rel Count 0.0 (0.00-0.1) % Eos # (Auto) 0.06 (0-0.5) x10^3/uL Immature Gran # (Auto) 0.02 (0.00-0.03) x10^3u/L Absolute Lymphs (auto) 1.15 (1.0-4.6) x10^3/uL Absolute Monos (auto) 0.70 (0.0-1.3) x10^3/uL Absolute Nucleated RBC 0.00 (0.00-0.01) x10^3u/L Lymphocytes % 12.1 L (24.0-44.0) % Monocytes % 7.3 (0.0-12.0) % Eosinophils % 0.6 (0.00-5.0) % Basophils % 0.2 (0.0-0.4) % Absolute Granulocytes 7.58 H (1.4-6.9) x10^3/uL Basophils # 0.02 (0-0.4) x10^3/uL Sodium 134 L (137-145) mmol/L Potassium 3.5 (3.5-5.1) mmol/L Chloride 99 (98-107) mmol/L Carbon Dioxide 25 (22-30) mmol/L Anion Gap 13.0 (5-15) MEQ/L BUN 13 (9-20) mg/dL Creatinine 0.63 L (0.66-1.25) mg/dL Estimated GFR > 60.0 ML/MIN Glucose 139 H (74-106) mg/dL Lactic Acid (0.4-2.0) Calcium 9.0 (8.4-10.2) mg/dL Magnesium (1.6-2.3) mg/dL Total Bilirubin 1.00 (0.2-1.3) mg/dL AST 49 (17-59) U/L ALT 35 (0-50) U/L Alkaline Phosphatase 59 (38-126) U/L Serum Total Protein 7.8 (6.3-8.2) g/dL Albumin 4.4 (3.5-5.0) g/dL Urine Color (Yellow) Urine Appearance (Clear) Urine pH (4.6-8.0) Ur Specific [place] (1.005-1.030) Urine Protein (Negative) Urine Glucose (UA) (Negative) mg/dL Urine Ketones (Negative) Urine Blood (Negative) Urine Nitrite (Negative) Urine Bilirubin (Negative) Urine Urobilinogen (0.2) mg/dL Ur Leukocyte Esterase (Negative) U Hyaline Cast (Auto) (0-2) /LPF Urine Microscopic RBC (0-5) /HPF Urine Microscopic WBC (0-5) /HPF Ur Epithelial Cells (None Seen) /HPF Urine Bacteria (None Seen) /HPF Urine Culture Reflexed (NO) - Progress Progress: improved Progress Note: Droperidol was given for pain control and nausea. This significantly improved the patient's symptoms. Patient's potassium was 3.5 so 40 mill equivalents of potassium chloride was given. His UA did show UTI and was sent for culture. Particular ultrasound showed no evidence of testicular torsion, but did show right testicular fluid and left epididymal cyst. His CT scan of his abdomen showed a broad-based disc protrusion posteriorly at L5-S1 concerning for disc herniation otherwise no abdominal pathology. His chest x-ray showed hyperinflated lungs. Patient was taken off nasal cannula and was saturating at 98 to 100% on room air. 07/13/22 01:58 Counseled pt/family regarding: lab results, diagnosis, need for follow-up, rad results Medical Desision Making - Diagnostic Testing Diagnostic test were ordered, analyzed, and reviewed by me: Yes Radiological Interpretation: Interpreted by me, Reviewed by me, Teleradiologist Report - Risk of complications The pt has a mod risk of morbidity or mortality based on: Need for prescription drug management - Departure Departure Disposition: Home Clinical Impression: UTI (urinary tract infection), Herniation of intervertebral disc between L5 and S1, Swelling of right testicle, Epididymal cyst, Hypokalemia Condition: Good Critical Care Time: No Referrals: SAMMY SINGLETON [Primary Care Provider] - Follow up/PCP as directed Instructions: Urinary Tract Infection, Adult ED Prescriptions: levoFLOXacin [Levofloxacin] 750 mg PO DAILY #10 tablet
[2022-07-12] MEDS ORDERED: DUONEB 0.5-3 MG/3 ml Neb IH ONE (23:48)
[2022-07-12] MEDS ORDERED: Sterile H2O 10 ml IJ ONE (23:52)
[2022-07-12] MEDS ORDERED: Sodium Chloride 0.9% 1000 ML 1,000 ML ONE (23:53)
[2022-07-12] MEDS ORDERED: solu-MEDROL ONE (23:53)
[2022-07-13] MEDS: solu-MEDROL 125 MG, Sterile H2O 10 ml 2 ML IV ONE ×4 (00:04→00:18)
[2022-07-13] MEDS ORDERED: DUONEB 0.5-3 MG/3 ml Neb IH ONE (00:13)
[2022-07-13 00:20] LABS: Absolute Neutrophil Ct (ANC) 7.58 x10^3/uL (1.4-6.9); BASOPHIL % 0.2 % (0.0-0.4); Basophil (Absolute #) 0.02 x10^3/uL (0-0.4); Eosinophil % 0.6 % (0.00-5.0); Eosinophil (Absolute #) 0.06 x10^3/uL (0-0.5); Hemoglobin 14.4 g/dL (12.5-18.0); IMMATURE GRAN # 0.02 x10^3u/L (0.00-0.03); IMMATURE GRAN % 0.2 % (0.00-0.4); Lymphocyte (Absolute #) 1.15 x10^3/uL (1.0-4.6); Lymphocytes % 12.1 % (24.0-44.0); Mean Cell Volume 99.8 fL (78-100); Mean Corpuscular Hemoglobin 33.4 pg (26-32); Mean Corpuscular Hgb Concent. 33.5 g/dL (32-36); Mean Platelet Volume 8.9 fL (7.5-11.0); Monocytes % 7.3 % (0.0-12.0); Neutrophil % 79.6 % (36.0-66.0); Platelet Count 168 x10^3/uL (150-450); Red Blood Count 4.31 x10^6/uL (4.1-5.6); Red Cell Distribution Width 12.2 % (11.5-14.0); White Blood Count 9.5 x10^3/uL (4.0-10.5)
[2022-07-13 00:36] LABS: ALBUMIN 4.4 g/dL (3.5-5.0); ALKALINE PHOSPHATASE 59 U/L (38-126); BLOOD UREA NITROGEN 13 mg/dL (9-20); CHLORIDE 99 mmol/L (98-107); Carbon Dioxide 25 mmol/L (22-30); Creatinine 1 0.63 mg/dL (0.66-1.25); EST GLOMERULAR FILTRATION RATE > 60.0 ML/MIN; Glucose 139 mg/dL (74-106); Potassium 3.5 mmol/L (3.5-5.1); SGOT/AST 49 U/L (17-59); SGPT/ALT 35 U/L (0-50); SODIUM 134 mmol/L (137-145); Total Protein 7.8 g/dL (6.3-8.2)
[2022-07-13] MEDS ORDERED: Klor Con PO ONE ×2 (00:41→00:44)
[2022-07-13 01:02] LABS: Appearance Clear (Clear); Bacteria None Seen /HPF (None Seen); Bilirubin Negative (Negative); Blood Negative (Negative); Epithelial Cells Rare /HPF (None Seen); Glucose, Urine Negative (Negative); Ketones 40 (Negative); Leukocyte Esterase Small (Negative); Nitrite Negative (Negative); Protein,Urine Dip 30 (Negative); Specific Gravity 1.025 (1.005-1.030)
[2022-07-13 01:03] LABS: ADD URINE CULTURE? YES (NO)
[2022-07-13 01:21] VITALS: O2SAT 100
--- NOTE | 2022-07-13 01:26 | XRAY ---
CLINICAL HISTORY:Abdominal pain; COMPARISON:None; TECHNIQUES:Multiple axial sections of the abdomen and pelvis were acquired without intravenous contrast administration. Reformatted images were obtained. FINDINGS: The visualized lung bases are clear. Homogenous attenuation of the liver. Normal-sized liver showing homogeneous attenuation. No intrahepatic duct dilatation is noted. Gallbladder is within normal CT limits without any calculus or pericholecystic fluid. The stomach and distal esophagus appeared grossly normal. The unenhanced pancreas and both adrenal glands are normal. Two focal 3 mm calcified granulomas are seen in the spleen, otherwise, appear normal. Normal-sized both kidneys. No cyst or calculus is seen on either side. No hydroureteronephrosis bilaterally. The urinary bladder is within normal limits. No acute bowel obstruction or ileus. Mild scattered colonic stool volume. The appendix is normal. No free fluid is noted. The prostate gland appears within normal CT limits. A broad-based posterior disc bulge is seen at L5-S1. Chronic bilateral pars interarticularis defect is noted at L5 without significant retrolisthesis or retropulsion. Anterior prominent large osteophytes are seen at L4. IMPRESSION: No acute abdominopelvic abnormality. Electronically Signed by: Lisseth Heredia MD. (07/13/2022 00:21:22 CREATIVE SERVICES WRITER)
--- NOTE | 2022-07-13 01:30 | XRAY ---
CLINICAL HISTORY:Hypoxia; COMPARISON:11-03-2019; TECHNIQUES:Chest x-ray, portable frontal view; FINDINGS: The cardio mediastinal silhouette is within normal limits. The prominence of the right middle, is likely filling due to bronchovascular congestion/rotation of the patient. No focal consolidation or collapse is seen. No sizable pleural effusion. No appreciable pneumothorax. Multilevel thoracic spine degenerative changes. IMPRESSION: No acute cardiopulmonary process. In comparison to the prior study, no significant changes. Electronically Signed by: Lisseth Heredia MD. (07/13/2022 00:27:00 WELDER/FABRICATOR)
[2022-07-13] MEDS ORDERED: Levofloxacin 500 MG Tablet PO ONE (01:47)
[2022-07-13] MEDS ORDERED: Levofloxacin 500 MG Tablet ONE (02:01)
[2022-07-13 02:08] VITALS: BP 126/84; PULSE 72
[2022-07-13 02:24] LABS: CHLAMYDIA DNA NOT DETECTED (NEGATIVE); GC DNA Probe NOT DETECTED (NEGATIVE)
--- NOTE | 2022-07-13 02:24 | XRAY ---
CLINICAL HISTORY:Testicle pain; COMPARISON:None; TECHNIQUES:Ultrasound of scrotum was done in real-time and duplex; FINDINGS: Right testis measures 3.7 x 2.8 x 2.8 cm. Left testis measures 3.9 x 2.6 x 3.0 cm. Homogenous parenchymal echotexture and normal vascularity are seen bilaterally. No sonographic evidence of torsion. The right epididymis measures 1.5 x 0.9 x 0.9 cm. No cyst was noted. Left epididymis measures 1.6 x 2.1 x 1.7 cm. A cyst measuring 0.6 x 0.7 x 0.5 cm was seen in the left epididymal head. A large fluid collection measuring 6.0 x 2.8 x 4.4 cm is seen superior to the right testis and may reflect a loculated hydrocele versus spermatocele. Mild left hydrocele. Multiple prominent and a few mildly enlarged left groin lymph nodes are seen, the largest measuring 1.2 cm. IMPRESSION: Normal size both testis showing normal vascularity. No sonographic evidence of torsion. Right-sided large fluid collection, may reflect a loculated hydrocele versus spermatocele. Recommend follow-up. Mild left hydrocele. Electronically Signed by: Lisseth Heredia MD. ( 07/13/2022 01:17:05 STRIP PRESSER)
== END 2022-07-13 02:12 | disposition home or self-care (01) ==
LOC: ED 23:25
DX: N39.0 Urinary tract infection, site not specified (principal); M51.27 Other intervertebral disc displacement, lumbosacral region; N50.89 Other specified disorders of the male genital organs; N50.3 Cyst of epididymis; E87.6 Hypokalemia; R10.32 Left lower quadrant pain; Z72.0 Tobacco use
CPT/HCPCS: 36000; 36415; 71045; 74176; 76870; 80053; 81001; 83605; 83735; 85025; 87086; 87491; 87591; 94640; 96374; 99284; J2930; A9270-GY